=== PATIENT | male | born 1995 | race African-American/Black ===

== ENCOUNTER 2020-01-15 19:15 | Emergency (ER) | payer MEDICAID, OTHER ==
[~2020-01-15] VITALS: Ht 175.3 cm; Wt 82.1 kg
[2020-01-15 19:19] VITALS: BP 137/83
== END 2020-01-15 19:39 | disposition home or self-care (01) ==
LOC: ED 19:16
DX: J45.909 Unspecified asthma, uncomplicated (principal); Z76.0 Encounter for issue of repeat prescription
CPT/HCPCS: 99281

== ENCOUNTER 2020-04-06 11:53 | Emergency (ER) | payer SELFPAY ==
[~2020-04-06] VITALS: Ht 177.8 cm; Wt 81.0 kg
[2020-04-06 11:56] VITALS: BP 126/72
== END 2020-04-06 12:40 | disposition home or self-care (01) ==
LOC: ED 12:30
DX: J45.909 Unspecified asthma, uncomplicated (principal); Z76.0 Encounter for issue of repeat prescription
CPT/HCPCS: 99281